=== PATIENT | female | born 2000 | race Caucasian/White ===

== ENCOUNTER 2020-04-08 11:56 | Emergency (ER) | payer OTHER ==
[~2020-04-08] VITALS: Ht 152.4 cm; Wt 50.8 kg
[2020-04-08 12:03] VITALS: BP 105/65
--- NOTE | 2020-04-08 12:08 | NUR ---
20 Y/O F PRESENTS TO ER C/O UPPER ABDOMINAL PAIN X 1 DAY, NON RADIATING, 8/10 PAIN, SHARP/PRESSURE SENSATION. ABDOMEN FLAT, SOFT, NONTENDER. PAIN IS EXACERBATED BY ACTIVITY. PER PT NOTHING ALLEVIATES THE PAIN. PER PT VOMITING EPISODES SINCE LAST NIGHT, LAST EPISODE AT 2100. DENIES HEMATEMESIS,DIARRHEA OR DYSURIA. VSS. WAITING FOR ERMD TO EVALUATE PT. ALLERGIES: NKA MED HX: NONE
--- NOTE | 2020-04-08 12:19 | NUR ---
Per pt x3 episodes of vomitting last night and x2 episodes of vomiting today.
--- NOTE | 2020-04-08 13:15 | NUR ---
Dr. Hinson evaluating pt at bedside
--- NOTE | 2020-04-08 13:33 | NUR ---
Blood Collected and given to lab
[2020-04-08 13:44] LABS: BASOPHILS % (AUTO) 0.1 % (0.0-2.0); EOSINOPHILS % (AUTO) 0.3 % (0.0-4.0); HEMOGLOBIN 11.9 g/dL (12.0-16.0); LYMPHOCYTES # (AUTO) 1.3 K/uL (2.5-16.5); LYMPHOCYTES % (AUTO) 14.1 % (20.5-51.1); MEAN CORPUSCULAR HEMOGLOBIN 26 pg (27-31); MEAN CORPUSCULAR HGB CONC 32 g/dL (33-37); MEAN CORPUSCULAR VOLUME 80.1 fL (80-94); MONOCYTES # (AUTO) 0.5 K/uL (0.8-1.0); MONOCYTES % (AUTO) 5.7 % (1.7-9.3); NEUTROPHILS # (AUTO) 7.6 K/uL (1.8-7.7); NEUTROPHILS % (AUTO) 79.8 % (42.2-75.2); PLATELET COUNT (AUTO) 264 K/uL (140-450); RED BLOOD CELL COUNT(AUTO) 4.62 MIL/uL (4.20-5.40); RED CELL DISTRIBUTION WIDTH 15.1 % (11.6-13.7); WHITE BLOOD COUNT (AUTO) 9.6 K/uL (4.5-11.0)
[2020-04-08 14:10] LABS: ALBUMIN 4.1 g/dL (3.4-5.0); ANION GAP 14.3 (8-16); CARBON DIOXIDE 26.7 mmol/L (21-32); CREATININE 0.7 mg/dL (0.6-1.3); TOTAL BILIRUBIN 0.7 mg/dL (0.0-1.0)
--- NOTE | 2020-04-08 15:40 | NUR ---
Vaginal Ultrasound performed at bedside
--- NOTE | 2020-04-08 15:58 | NUR ---
Dr. Crowder at pt bedside
[2020-04-08 17:16] VITALS: BP 120/58
--- NOTE | 2020-04-08 17:17 | NUR ---
Patient discharged with v/s stable. Written and verbal after care instructions given and explained. Patient alert, oriented and verbalized understanding of instructions. Ambulatory with steady gait. All questions addressed prior to discharge. ID band removed. Patient advised to follow up with OBGYN. Rx of Zofran ODT 4mg and Naprosyn 500mg was given. Patient educated on indication of medication including possible reaction and side effects. Opportunity to ask questions provided and answered.
== END 2020-04-08 17:17 | disposition home or self-care (01) ==
LOC: MED 11:56
DX: R19.07 Generalized intra-abdominal and pelvic swelling, mass and lump (principal)
CPT/HCPCS: 36415; 74177; 76856; 80053; 81002; 81025; 85025; 93976; 99285; Q0092; Q9967